=== PATIENT | female | born 1975 | race Caucasian/White ===

== ENCOUNTER 2022-01-15 14:44 | Emergency (ER) | payer OTHER, SELFPAY ==
--- NOTE | ~2022-01-15 | CT_ITS ---
EXAMINATION: CT brain wo con DATE: 01/15/2022 16:29 INDICATION: headache . TECHNIQUE: Computed tomography (CT) of the head was performed without intravenous contrast. The mA wa s adjusted according to patient size. Iterative reconstruction technique was employed. The dose-lengt h product was 605.33 mGy-cm. COMPARISON: None FINDINGS: No acute intracranial hemorrhage or extra-axial fluid collection. No hydrocephalus, mass, or herniation. No acute ischemic infarct. Unremarkable dural venous sinus attenuation. No acute osseous abnormality. The aerated spaces are clear. IMPRESSION: No acute intracranial process. Reviewed, dictated and finalized at location K.
[2022-01-15 15:12] VITALS: BP 106/66; PULSE 48; RESP 18; TEMP 36.6; O2SAT 100
--- NOTE | 2022-01-15 16:21 | ED.HA ---
HPI - Headache General Chief Complaint: Headache Stated Complaint: BHAT since 1230 c emesis/abd pain Time Seen by Provider: 01/15/22 15:54 History of Present Illness HPI Narrative: 46-year-old female presents to the emergency room for multiple complaints. Patient states this weekend she was seen at an outside emergency room for cute onset of a rash that developed on the left side of her face. Patient was diagnosed with contact dermatitis, suspecting poison kenyatta despite being exposed to any poison kenyatta. Patient states that the pain was sharp and stabbing on the left side of her face that radiated to the occipital scalp. Patient is also complaining of typical migraine headache behind her left eye that is light sensitive. Patient is also complaining of cervical neck tenderness that radiates forward over her scalp. Patient has been nauseated. Related Data Allergies Allergy/AdvReac Type Severity Reaction Status Date / Time No Known Allergies Allergy Verified 01/15/22 16:20 Review of Systems Review of Systems: CONSTITUTIONAL: Denies fever, chills, or sweats. EYES: Denies visual changes, redness, or discharge. ENT: Denies rhinorrhea, congestion, sore throat, or otalgia. CARDIOVASCULAR: Denies chest pain, palpitations, or edema. RESPIRATORY: Denies cough or dyspnea. GASTROINTESTINAL: Denies abdominal pain, nausea, vomiting, or diarrhea. GENITOURINARY: Denies dysuria or hematuria. SKIN: Reports rash to the patient MUSCULOSKELETAL: Denies back pain, joint pain, or myalgia. NEUROLOGIC: Reports headache, denies any meningeal signs PSYCHIATRIC: Denies anxiety or depression. Exam Narrative: GENERAL: Well-appearing, well-nourished, and in no acute distress. HEAD: Normocephalic, atraumatic. EYES: PERRLA and EOMI. ENT: Nares clear, no rhinorrhea or epistaxis. Mucous membranes moist. Oropharynx without tonsillar hypertrophy exudate or other lesions. Bilateral TMs pearly serra nonbulging NECK: Supple. No adenopathy or masses. No carotid bruits or JVD CHEST: Clear to auscultation. No respiratory distress. No wheezes rales or rhonchi HEART: Regular rate and rhythm. No murmur heard. Normal peripheral pulses. ABDOMEN: Soft, nontender, nondistended, normal active bowel sounds. EXTREMITIES: Normal range of motion. No edema. SKIN: Crusting rash noted to left parietal NEURO: No focal deficits. Alert and oriented x3. cranial nerve II through XII are intact. No meningeal signs present PSYCH: Normal mood and affect. Course Vital Signs Vital signs: Vital Signs Temperature 36.6 C 01/15/22 15:12 Pulse Rate 48 L 01/15/22 15:12 Respiratory Rate 18 01/15/22 15:12 Blood Pressure 106/66 01/15/22 15:12 Pulse Oximetry 100 01/15/22 15:12 Oxygen Delivery Room Air 01/15/22 15:12 Temperature 36.6 C 01/15/22 15:12 Pulse Rate 48 L 01/15/22 15:12 Respiratory Rate 18 01/15/22 15:12 Blood Pressure 106/66 01/15/22 15:12 Pulse Oximetry 100 01/15/22 15:12 Oxygen Delivery Room Air 01/15/22 15:12 MDM - Headache MDM Narrative Medical decision making narrative: 46-year-old female presented to the emergency room with a headache, consistent with benign headache from either tension versus migraine. There were no headache red flags. No signs of meningismus, altered mental status, or focal neurological findings. Patient also presented with a rash to the left side of her face that had crusted over. This rash was previously diagnosed as poison kenyatta, however given his symptoms most likely resolving shingles. Patient was given a headache cocktail that resolved her headache. We will send patient home with a course of valacyclovir and pain medicine. Imaging Data Radiologist's impression: Impressions Head CT 01/15/22 16:30 IMPRESSION: No acute intracranial process. Discharge Plan Discharge Clinical Impression: Headache, Migraine, Tension headache, Acute trigeminal herpes zoster Patient Disposition:
[2022-01-15] MEDS: SODIUM CHLORIDE 0.9% IV 1,000 ML 999 ML IV CONT (16:36)
[2022-01-15] MEDS: diphenhydrAMINE HCl INJ 50 MG/ML VIAL 25 MG IV PUSH (16:36)
[2022-01-15] MEDS: KETOROLAC 30 MG/ML VIAL (*BKC) IV PUSH (16:37)
[2022-01-15] MEDS: METOCLOPRAMIDE HCL INJ 10 MG/2 ML VIAL IV PUSH (16:37)
[2022-01-15 17:07] VITALS: TEMP 36.6
[2022-01-15 17:24] LABS: Basophils Absolute Auto 0.1 K/mm3 (0.0-0.1); Basophils Percent Auto 0.5 % (0.2-1.2); Eosinophils Absolute Auto 0.1 K/mm3 (0-0.3); Eosinophils Percent Auto 0.4 % (0-4.4); Hematocrit 40.7 % (37.0-47.0); Hemoglobin 13.4 g/dL (12.0-15.0); Immature Granulocyte Absolute 0.04 K/mm3 (0.00-0.031); Immature Granulocyte Percent A 0.3 % (0-0.5); Lymphocytes Absolute Auto 2.35 K/mm3 (0.9-3.2); Lymphocytes Percent Auto 18.1 % (18.3-44.2); Mean Corpuscular HGB Conc 32.9 g/dl (32-36); Mean Corpuscular Hemoglobin 31.9 pg (26-34); Mean Corpuscular Volume 96.9 fl (80-100); Mean Platelet Volume 10.2 fl (7.4-10.4); Monocytes Absolute Auto 1.3 K/mm3 (0.1-0.6); Monocytes Percent Auto 9.8 % (2.6-8.5); Neutrophils Absolute Auto 9.2 K/mm3 (1.3-6.7); Neutrophils Percent Auto 70.9 % (45.5-73.1); Platelet Count Result 247 k/mm3 (150-375); Red Cell Distribution Width 12.8 % (11.5-14.5)
[2022-01-15 17:38] VITALS: BP 101/68; PULSE 62; RESP 18; O2SAT 98
[2022-01-15 18:33] VITALS: BP 107/65; PULSE 59; RESP 18; O2SAT 98
== END 2022-01-15 18:38 | disposition home or self-care (01) ==
PROVIDERS: Emergency Provider Nurse Practitioner Family
DX: B02.22 Postherpetic trigeminal neuralgia (principal); G43.909 Migraine, unspecified, not intractable, without status migrainosus
CPT/HCPCS: 36415; 70450; 85025; 96361; 96374; 96375; 99284; J1200; J1885; J2765; J7030